=== PATIENT | male | born 1985 | race Caucasian/White ===

== ENCOUNTER → 2020-03-15 15:47 | Outpatient (CLI) | payer OTHER, SELFPAY ==
[2020-03-15 16:53] LABS: Liquefaction Semen YES (YES); PH Semen 8.5 (7-8); Sperm Count 23 x10^6/mL (20-150); Sperm Motility 60% % Motile
[2020-03-15 16:54] LABS: Sperm Morphology 93 %ABNORM (0-30)
== END ==
PROVIDERS: PCP Family Medicine; Referring Provider Obstetrics & Gynecology; Visit Provider Obstetrics & Gynecology
DX: Z31.41 Encounter for fertility testing (principal)
CPT/HCPCS: 89320